=== PATIENT | female | born 1960 | race Caucasian/White ===

== ENCOUNTER 2018-04-18 14:29 | Emergency (ER) | payer MEDICAID, MEDICARE ==
[2018-04-18] MEDS: BACITRACIN 0.9 GM OINT TOP (16:43)
== END 2018-04-18 17:35 | disposition home or self-care (01) ==
LOC: FTE 14:29
DX: T81.30XA Disruption of wound, unspecified, initial encounter (principal); I10 Essential (primary) hypertension; Y79.2 Prosthetic and other implants, materials and accessory orthopedic devices associated with adverse incidents; Z96.653 Presence of artificial knee joint, bilateral
CPT/HCPCS: 99283; Z7502

== ENCOUNTER 2018-06-21 07:48 | Inpatient (IN) | payer MEDICAID ==
[2018-06-21] MEDS: SOD CHLORIDE 0.9% 1,000 ML IV ×2 (08:33→15:13)
[2018-06-21] MEDS: ONDANSETRON 4 MG INJ IV (08:33)
[2018-06-21 08:38] LABS: ADD MAN DIFF? NO
[2018-06-21 08:42] LABS: BASOPHILS % 0.2 % (0.0-2.0); EOSINOPHILS % 0.1 % (0.0-7.0); HEMATOCRIT 40.3 % (37.0-47.0); HEMOGLOBIN 12.8 g/dl (12.0-16.0); LYMPHOCYTES # 1.8 10^3/ul (0.8-2.9); LYMPHOCYTES % 11.1 % (15.0-51.0); MEAN CORPUSCULAR HEMOGLOBIN 27.9 pg (29.0-33.0); MEAN CORPUSCULAR HGB CONC 31.8 g/dl (32.0-37.0); MEAN PLATELET VOLUME 9.6 fl (7.4-10.4); MONOCYTE # 0.8 10^3/ul (0.3-0.9); MONOCYTES % 4.7 % (0.0-11.0); NEUTROPHIL # 13.4 10^3/ul (1.6-7.5); NEUTROPHILS % 83.1 % (39.0-77.0); PLATELET COUNT 248 10^3/UL (140-415); RED BLOOD COUNT 4.58 10^6/ul (4.20-5.40); RED CELL DISTRIBUTION WIDTH 15.3 % (11.5-14.5)
[2018-06-21 08:42] LABS: WHITE BLOOD COUNT 16.1 10^3/ul (4.8-10.8)
[2018-06-21 08:56] LABS: ADD UMIC YES; UR ASCORBIC ACID NEGATIVE (NEGATIVE); UR BACTERIA MODERATE /HPF (NONE SEEN); UR BILIRUBIN (Dip) NEGATIVE (NEGATIVE); UR BLOOD (Dip) 3+ mg/dL (NEGATIVE); UR CLARITY CLOUDY (CLEAR); UR COLOR YELLOW (YELLOW); UR GLUCOSE (Dip) NEGATIVE (NEGATIVE); UR KETONES (Dip) NEGATIVE (NEGATIVE); UR LEUKOCYTE ESTERASE (Dip) 3+ Leu/ul (NEGATIVE); UR MUCUS FEW /HPF (NONE SEEN); UR NITRITE (Dip) POSITIVE (NEGATIVE); UR RBC > 182 /HPF (0-5); UR SPECIFIC GRAVITY (Dip) 1.011 (1.003-1.030); UR SQUAMOUS EPITHELIAL CELL FEW /HPF (FEW); UR TOTAL PROTEIN (Dip) 1+ mg/dl (NEGATIVE); UR UROBILINOGEN (Dip) NEGATIVE (NEGATIVE); UR WBC > 182 /HPF (0-5)
[2018-06-21 09:04] LABS: ALANINE AMINOTRANSFERASE 60 IU/L (13-69); ALBUMIN 3.7 g/dl (3.3-4.9); ALBUMIN/GLOBULIN RATIO 1.27; ALKALINE PHOSPHATASE 109 IU/L (42-121); ANION GAP 9 (5-13); ASPARTATE AMINO TRANSFERASE 35 IU/L (15-46); BILIRUBIN,INDIRECT 0.7 mg/dl (0-1.1); BILIRUBIN,TOTAL 0.7 mg/dl (0.2-1.3); BLOOD UREA NITROGEN 16 mg/dl (7-20); CALCIUM 9.4 mg/dl (8.4-10.2); CARBON DIOXIDE 29 mmol/L (21-31); CHLORIDE 105 mmol/L (97-110); CREATININE 0.64 mg/dl (0.44-1.00); Estimated GFR > 60 mL/min (>60); GLUCOSE 101 mg/dl (70-220); LIPASE 57 U/L (23-300); POTASSIUM 3.6 mmol/L (3.5-5.1); SODIUM 143 mmol/L (135-144); TOTAL PROTEIN 6.6 g/dl (6.1-8.1)
[2018-06-21] MEDS: CEFTRIAXONE 1 GM/50 ML (PMX) 50 ML IVPB (09:06)
[2018-06-21] MEDS: IBUPROFEN 800 MG TAB PO (09:37)
[2018-06-21] MEDS: SODIUM CHLORIDE 0.9% 1L BAG IV* (09:38)
[2018-06-21] MEDS ORDERED: ONDANSETRON 4 MG INJ IV ×2 (11:30→13:30)
[2018-06-21] MEDS ORDERED: ACETAMINOPHEN 325 MG TAB PO (11:30)
[2018-06-21] MEDS ORDERED: NACL 0.9% 3 ML SYG IV (13:30)
[2018-06-21 14:39] LABS: LACTIC ACID 1.9 mmol/L (0.5-2.0)
[2018-06-21 15:02] LABS: HEMOGLOBIN A1C 5.4 % (0-5.9)
[2018-06-21] MEDS: HYDROCODONE/APAP (5/325) TAB PO ×2 (17:10→22:56)
[2018-06-21] MEDS: ACETAMINOPHEN 325 MG TAB PO (18:46)
[2018-06-21] MEDS: METOPROLOL 25 MG TAB PO (21:00)
[2018-06-21] MEDS: GABAPENTIN 300 MG CAP PO (21:26)
[2018-06-21] MEDS: TOLTERODINE 2 MG TAB PO (21:27)
[2018-06-22] MEDS: SOD CHLORIDE 0.9% 1,000 ML IV (00:44)
[2018-06-22] MEDS: HYDROCODONE/APAP (5/325) TAB PO ×4 (04:43→22:48)
[2018-06-22 06:03] LABS: ADD MAN DIFF? NO
[2018-06-22 06:06] LABS: WHITE BLOOD COUNT 14.3 10^3/ul (4.8-10.8)
[2018-06-22 06:06] LABS: BASOPHILS % 0.2 % (0.0-2.0); EOSINOPHILS # 0.1 10^3/ul (0.0-0.5); EOSINOPHILS % 0.5 % (0.0-7.0); HEMATOCRIT 34.1 % (37.0-47.0); HEMOGLOBIN 10.6 g/dl (12.0-16.0); LYMPHOCYTES # 2.6 10^3/ul (0.8-2.9); LYMPHOCYTES % 17.9 % (15.0-51.0); MEAN CORPUSCULAR HEMOGLOBIN 28.6 pg (29.0-33.0); MEAN CORPUSCULAR HGB CONC 31.1 g/dl (32.0-37.0); MEAN CORPUSCULAR VOLUME 91.9 fl (82.0-101.0); MEAN PLATELET VOLUME 10.4 fl (7.4-10.4); MONOCYTE # 0.8 10^3/ul (0.3-0.9); MONOCYTES % 5.4 % (0.0-11.0); NEUTROPHIL # 10.8 10^3/ul (1.6-7.5); NEUTROPHILS % 75.5 % (39.0-77.0); PLATELET COUNT 205 10^3/UL (140-415); RED BLOOD COUNT 3.71 10^6/ul (4.20-5.40); RED CELL DISTRIBUTION WIDTH 15.6 % (11.5-14.5)
[2018-06-22 07:05] LABS: CHOL/HDL RATIO 2.9 RATIO; CHOLESTEROL 149 mg/dl (100-200); HDL CHOLESTEROL 50 mg/dl (37-92); LDL CHOLESTEROL,CALCULATED 77 mg/dl; MAGNESIUM 2.2 mg/dl (1.7-2.5); TRIGLYCERIDES 110 mg/dl (0-149)
[2018-06-22 07:05] LABS: PHOSPHORUS 3.4 mg/dl (2.5-4.9)
[2018-06-22 07:11] LABS: ALANINE AMINOTRANSFERASE 42 IU/L (13-69); ALBUMIN 2.9 g/dl (3.3-4.9); ALBUMIN/GLOBULIN RATIO 1.26; ALKALINE PHOSPHATASE 82 IU/L (42-121); ANION GAP 5 (5-13); ASPARTATE AMINO TRANSFERASE 21 IU/L (15-46); BILIRUBIN,INDIRECT 0.1 mg/dl (0-1.1); BILIRUBIN,TOTAL 0.1 mg/dl (0.2-1.3); BLOOD UREA NITROGEN 14 mg/dl (7-20); CALCIUM 8.8 mg/dl (8.4-10.2); CARBON DIOXIDE 27 mmol/L (21-31); CHLORIDE 109 mmol/L (97-110); CREATININE 0.58 mg/dl (0.44-1.00); Estimated GFR > 60 mL/min (>60); GLUCOSE 79 mg/dl (70-220); SODIUM 141 mmol/L (135-144); TOTAL PROTEIN 5.2 g/dl (6.1-8.1)
[2018-06-22] MEDS: ENOXAPARIN 40 MG/0.4 ML SYG SC (08:59)
[2018-06-22] MEDS: CEFTRIAXONE 1 GM/50 ML (PMX) 50 ML IVPB (08:59)
[2018-06-22] MEDS: GABAPENTIN 300 MG CAP PO ×3 (09:02→21:19)
[2018-06-22] MEDS: BENAZEPRIL 20 MG TAB PO (09:02)
[2018-06-22] MEDS: METOPROLOL 25 MG TAB PO ×2 (09:02→21:19)
[2018-06-22] MEDS: TOLTERODINE 2 MG TAB PO ×2 (09:03→21:19)
[2018-06-23] MEDS: HYDROCODONE/APAP (5/325) TAB PO ×3 (05:08→20:16)
[2018-06-23 06:31] LABS: ADD MAN DIFF? NO
[2018-06-23 06:37] LABS: WHITE BLOOD COUNT 8.7 10^3/ul (4.8-10.8)
[2018-06-23 06:37] LABS: BASOPHILS % 0.1 % (0.0-2.0); EOSINOPHILS % 0.3 % (0.0-7.0); LYMPHOCYTES # 2.1 10^3/ul (0.8-2.9); LYMPHOCYTES % 24.1 % (15.0-51.0); MEAN CORPUSCULAR HEMOGLOBIN 28.3 pg (29.0-33.0); MEAN CORPUSCULAR HGB CONC 31.4 g/dl (32.0-37.0); MEAN PLATELET VOLUME 10.5 fl (7.4-10.4); MONOCYTE # 0.8 10^3/ul (0.3-0.9); MONOCYTES % 9.5 % (0.0-11.0); NEUTROPHIL # 5.7 10^3/ul (1.6-7.5); NEUTROPHILS % 65.4 % (39.0-77.0); PLATELET COUNT 213 10^3/UL (140-415); RED BLOOD COUNT 3.89 10^6/ul (4.20-5.40); RED CELL DISTRIBUTION WIDTH 14.9 % (11.5-14.5)
[2018-06-23 07:16] LABS: PHOSPHORUS 3.7 mg/dl (2.5-4.9)
[2018-06-23 07:16] LABS: MAGNESIUM 2.1 mg/dl (1.7-2.5)
[2018-06-23 07:26] LABS: ANION GAP 6 (5-13); BLOOD UREA NITROGEN 14 mg/dl (7-20); CALCIUM 9.3 mg/dl (8.4-10.2); CARBON DIOXIDE 28 mmol/L (21-31); CHLORIDE 107 mmol/L (97-110); CREATININE 0.58 mg/dl (0.44-1.00); Estimated GFR > 60 mL/min (>60); GLUCOSE 105 mg/dl (70-220); POTASSIUM 4.4 mmol/L (3.5-5.1); SODIUM 141 mmol/L (135-144)
[2018-06-23] MEDS: TOLTERODINE 2 MG TAB PO ×2 (08:43→20:16)
[2018-06-23] MEDS: GABAPENTIN 300 MG CAP PO ×3 (08:43→20:17)
[2018-06-23] MEDS: CEFTRIAXONE 1 GM/50 ML (PMX) 50 ML IVPB (08:43)
[2018-06-23] MEDS: ENOXAPARIN 40 MG/0.4 ML SYG SC (08:44)
[2018-06-23] MEDS: METOPROLOL 25 MG TAB PO ×2 (08:45→20:17)
[2018-06-23] MEDS: BENAZEPRIL 20 MG TAB PO (08:46)
[2018-06-24] MEDS: HYDROCODONE/APAP (5/325) TAB PO ×2 (02:17→10:39)
[2018-06-24 05:17] LABS: ADD MAN DIFF? NO
[2018-06-24 05:24] LABS: BASOPHILS % 0.4 % (0.0-2.0); EOSINOPHILS # 0.1 10^3/ul (0.0-0.5); HEMATOCRIT 37.1 % (37.0-47.0); LYMPHOCYTES # 2.1 10^3/ul (0.8-2.9); LYMPHOCYTES % 30.7 % (15.0-51.0); MEAN CORPUSCULAR HEMOGLOBIN 28.7 pg (29.0-33.0); MEAN CORPUSCULAR HGB CONC 32.3 g/dl (32.0-37.0); MEAN CORPUSCULAR VOLUME 88.8 fl (82.0-101.0); MEAN PLATELET VOLUME 10.3 fl (7.4-10.4); MONOCYTE # 0.8 10^3/ul (0.3-0.9); MONOCYTES % 11.3 % (0.0-11.0); NEUTROPHIL # 3.9 10^3/ul (1.6-7.5); PLATELET COUNT 235 10^3/UL (140-415); RED BLOOD COUNT 4.18 10^6/ul (4.20-5.40); RED CELL DISTRIBUTION WIDTH 14.9 % (11.5-14.5)
[2018-06-24 05:24] LABS: WHITE BLOOD COUNT 6.9 10^3/ul (4.8-10.8)
[2018-06-24 05:47] LABS: PHOSPHORUS 3.9 mg/dl (2.5-4.9)
[2018-06-24 05:47] LABS: MAGNESIUM 2.3 mg/dl (1.7-2.5)
[2018-06-24 05:54] LABS: ANION GAP 9 (5-13); BLOOD UREA NITROGEN 16 mg/dl (7-20); CALCIUM 9.5 mg/dl (8.4-10.2); CARBON DIOXIDE 27 mmol/L (21-31); CHLORIDE 106 mmol/L (97-110); CREATININE 0.53 mg/dl (0.44-1.00); Estimated GFR > 60 mL/min (>60); GLUCOSE 102 mg/dl (70-220); POTASSIUM 4.5 mmol/L (3.5-5.1); SODIUM 142 mmol/L (135-144)
[2018-06-24] MEDS: TOLTERODINE 2 MG TAB PO (08:36)
[2018-06-24] MEDS: GABAPENTIN 300 MG CAP PO ×2 (08:37→12:57)
[2018-06-24] MEDS: ACETAMINOPHEN 325 MG TAB PO ×2 (08:37→15:39)
[2018-06-24] MEDS: BENAZEPRIL 20 MG TAB PO (08:37)
[2018-06-24] MEDS: METOPROLOL 25 MG TAB PO (08:37)
[2018-06-24] MEDS: ENOXAPARIN 40 MG/0.4 ML SYG SC (08:38)
[2018-06-24] MEDS: CEFTRIAXONE 1 GM/50 ML (PMX) 50 ML IVPB (08:38)
== END 2018-06-24 15:55 | disposition home or self-care (01) | DRG 690 ==
LOC: FTE 07:48 → PP2 11:26
DX: N10 Acute pyelonephritis (principal); E66.9 Obesity, unspecified; Z68.35 Body mass index [BMI] 35.0-35.9, adult; N20.0 Calculus of kidney; M54.9 Dorsalgia, unspecified; G89.29 Other chronic pain; N32.81 Overactive bladder; I10 Essential (primary) hypertension; S09.93XA Unspecified injury of face, initial encounter; W10.8XXA Fall (on) (from) other stairs and steps, initial encounter
CPT/HCPCS: 36415; 70450; 70486; 74018; 76775; 80048; 80053; 80061; 81001; 83036; 83605; 83690; 83735; 84100; 85025; 87040; 87081; 87086; 87400; 96361; 96365; 96375; 99285-25